=== PATIENT | female | born 1940 | race Caucasian/White ===

== ENCOUNTER 2019-01-05 15:55 | Observation (INO) | payer MEDICARE, OTHER ==
[2019-01-05 16:45] LABS: ABS Basophils 0 10^3/ul (0-0.2); ABS Eosinophils 0.3 10^3/ul (0-0.6); ABS Lymphocytes 1.2 10^3/ul (1.0-4.8); ABS Monocytes 0.5 10^3/ul (0-0.8); ABS Neutrophils 3.6 10^3/ul (1.5-7.7); ABS Nucleated RBC 0 10^3/ul; Eosinophil % 5.1 %; Hematocrit 44 % (35-47); Hemoglobin 14.8 g/dl (12.0-16.0); Lymphocyte % 22.3 %; Mean Corpuscular HGB Conc 33 g/dl (31-36); Mean Corpuscular Hemoglobin 33 pg (27-31); Mean Corpuscular Volume 98 fL (80-97); Mean Platelet Volume 7.3 fL (7.4-10.4); Nucleated Red Blood Cells % 0.1; Platelet Count 214 10^3/ul (150-450); Red Blood Count 4.53 10^6/ul (4.00-5.40); Red Cell Distribution Width 14 % (10.5-15); White Blood Count 5.6 10^3/ul (3.5-10.8)
--- NOTE | 2019-01-05 16:45 | ED ---
Hypertension - HPI Summary HPI Summary: 78-year-old female presents with presyncope today. She says she was doing her usually PT for her knee and went to move from seat to the floor and she fell dizzy and that she was going to pass out. She denies any chest pain or shortness breath. She states that the dizziness persisted and her blood pressure was taken and was found to be high. She states this never happened before. She admits to headache. States that she's been having sinus pressure. She states she did have some nasal discharge a couple days ago. has history of sinusitis. She states that it is a sensation that she is passed out with the dizziness. No change with movement. She denies any history of high blood pressure or cardiac issues. She has not had stress test in 18 years. - History of Current Complaint Chief Complaint: EDHypertension Stated Complaint: POSS HIGH BLOOD PRESSURE Time Seen by Provider: 01/05/19 16:27 - Allergies/Home Medications Allergies/Adverse Reactions: Allergies Allergy/AdvReac Type Severity Reaction Status Date / Time codeine Allergy Itching Verified 01/05/19 16:09 hydrocodone Allergy Itching Verified 01/05/19 16:09 oxycodone Allergy Itching Verified 01/05/19 16:09 Penicillins Allergy Itching Verified 01/05/19 16:09 Home Medications: Home Medications PARoxetine HCL TAB* [Paxil TAB*] 10 mg PO DAILY 01/05/19 [History Confirmed 10/13] Simvastatin (NF) [Zocor (NF)] 40 mg PO BEDTIME 01/05/19 [History Confirmed 01/05] traMADol TAB* [Ultram*] 50 mg PO TID PRN 01/05/19 [History Confirmed 01/05/19] PMH/Surg Hx/FS Hx/Imm Hx Endocrine/Hematology History: Denies: Hx Diabetes, Hx Systemic Lupus Erythematosus, Other Endocrine/ Hematological Disorders Cardiovascular History: Reports: Hx Hypercholesterolemia, Hx Hypertension, Other Cardiovascular Problems/Disorders - HIGH CHOLESTEROL Denies: Hx Congestive Heart Failure, Hx Pacemaker/ICD GI History: Reports: Hx Diverticulosis, Hx Irritable Bowel Comment Only: Other GI Disorders - liver abcess History: Denies: Hx Dialysis, Hx Renal Disease Musculoskeletal History: Reports: Hx Back Problems Denies: Hx Rheumatoid Arthritis, Hx Osteoporosis Sensory History: Reports: Hx Contacts or Glasses Denies: Hx Hearing Aid Opthamlomology History: Reports: Hx Contacts or Glasses Psychiatric History: Reports: Hx Anxiety, Hx Depression Denies: Hx Panic Disorder - Cancer History Hx Chemotherapy: No Hx Radiation Therapy: No - Surgical History Surgery Procedure, Year, and Place: RT FEMUR SURGERY 2008, DENTAL SURGERIES , D& C - Immunization History Date of Tetanus Vaccine: unknown Infectious Disease History: No Infectious Disease History: Denies: Hx Clostridium Difficile, Hx of Known/Suspected MRSA, Traveled Outside the [place] in Last 30 Days - Family History Known Family History: Positive: Cardiac Disease, Hypertension - Social History Alcohol Use: Rare Substance Use Type: Reports: None Hx Tobacco Use: No Smoking Status (MU): Never Smoked Tobacco Have You Smoked in the Last Year: No Review of Systems Negative: Fever Positive: Other - sinus pressure Negative: Chest Pain Negative: Shortness Of Breath Neurological: Other - dizziness, high blood pressure All Other Systems Reviewed And Are Negative: Yes Physical Exam Triage Information Reviewed: Yes Vital Signs On Initial Exam: Initial Vitals Temp Pulse Resp BP Pulse Ox 97.2 F 62 16 210/97 99 01/05/19 15:59 01/05/19 15:59 01/05/19 15:59 01/05/19 15:59 01/05/19 15:59 Vital Signs Reviewed: Yes Appearance: Positive: Well-Appearing Skin: Positive: Warm, Dry Head/Face: Positive: Normal Head/Face Inspection Eyes: Positive: Normal, EOMI, ANN, Conjunctiva Clear ENT: Positive: Normal ENT inspection, Pharynx normal, TMs normal, Sinus tenderness Respiratory/Lung Sounds: Positive: Clear to Auscultation, Breath Sounds Present Cardiovascular: Positive: Normal, RRR Abdomen Description: Positive: Nontender, Soft Bowel Sounds: Positive: Present Musculoskeletal: Positive: Normal Neurological: Positive: Normal Psychiatric: Positive: Normal Diagnostics - Vital Signs Vital Signs Temp Pulse Resp BP Pulse Ox 01/05/19 15:59 97.2 F 62 16 210/97 99 - Laboratory Result Diagrams: 01/05/19 16:37 01/05/19 16:37 Lab Statement: Any lab studies that have been ordered have been reviewed, and results considered in the medical decision making process. - Radiology brain Radiology Interpretation Completed By: Radiologist Summary of Radiographic Findings: IMPRESSION: 1. Chronic findings described above without CT apparent acute intracranial abnormality. 2. Chronic sphenoid sinus disease that has progressed since the May 15, 2015 CT of the. brain. - EKG No standard instances Cardiac Rate: Bradycardia EKG Rhythm: Sinus Bradycardia Summary of EKG Findings: sinus bradycardia Re-Evaluation - Re-Evaluation First Eval Re-Evaluation Time: 18:12 Change: Improved Comment: denies any dizziness, states just sinus pressure Second Eval Re-Evaluation Time: 18:23 Change: Worse Comment: patient became extremely dizzy on toliet Hypertension Course/Dx - Course Course Of Treatment: 78-year-old female presents with dizziness today. States started during PT today she tried to stand up and became dizzy and that it persisted for about 30 minutes. States it is feeling that she is going to pass out. She denies chest pressures or shortness of breath. She denies any history of high blood pressure. She denies any dizziness currently. On exam lungs clear to auscultation. Normal neuro exam. CT shows sinusitis. ekg shows sinus bradycardia. troponin zero. wbc normal. Patient's vitals were not orthostatic. patient had no dizziness will in ED until attempted to have patient ambulate and when tried to get up from the toilet patient almost passed out. discussed with dr orr who suggests discussing with the hospital. Discussed with hospitalist who agreed to admit. - Diagnoses Differential Diagnosis/HQI PQRI: Hypertensive Crisis, Hypertensive Urgency, Other - sinsuitis Provider Diagnoses: Dizziness, High blood pressure Discharge - Sign-Out/Discharge Documenting (check all that apply): Patient Departure - Discharge Plan Condition: Stable Disposition: ADMITTED TO [facility] - Billing Disposition and Condition Condition: STABLE Disposition: Admitted to [facility]
[2019-01-05 17:03] LABS: ALT 5 U/L (7-52); AST 20 U/L (13-39); Albumin 4.2 g/dL (3.2-5.2); Albumin/Globulin Ratio 1.7 (1-3); Alkaline Phosphatase 34 U/L (34-104); Anion Gap 7 mmol/L (2-11); BUN/Creatinine Ratio 16.9 (8-20); Blood Urea Nitrogen 14 mg/dL (6-24); CO2 Carbon Dioxide 27 mmol/L (22-32); Calcium 9.4 mg/dL (8.6-10.3); Chloride 105 mmol/L (101-111); EGFR African American 80.2 (>60); EGFR Non-African American 66.3 (>60); Globulin 2.5 g/dL (2-4); Glucose 103 mg/dL (70-100); Sodium 139 mmol/L (135-145); Total Protein 6.7 g/dL (6.4-8.9)
[2019-01-05] MEDS ORDERED: cloNIDine TAB* 0.1 MG PO ONE (17:18)
[2019-01-05 17:27] LABS: TSH (Thyroid Stimulating Horm) 2.92 mcIU/mL (0.34-5.60)
[2019-01-05 17:28] LABS: Urine Appearance Clear; Urine Bilirubin Negative (Negative); Urine Blood Negative (Negative); Urine Color Straw; Urine Glucose Negative (Negative); Urine Ketones Negative (Negative); Urine Nitrite Negative (Negative); Urine Protein Negative (Negative); Urine Specific Gravity 1.003 (1.010-1.030); Urine Urobilinogen Negative (Negative)
[2019-01-05 18:03] LABS: C Reactive Protein < 1.00 mg/L (<8.01)
[2019-01-05] MEDS: NS 0.9% 1000 ML** 1,000 ML IV SCH (22:26)
[2019-01-05] MEDS: Atorvastatin* 20 MG TAB PO SCH (22:26)
[2019-01-05] MEDS: traMADol TAB* 50 MG PO PRN (22:27)
[2019-01-05] MEDS ORDERED: Levofloxacin TAB* 500 MG PO SCH (22:30)
--- NOTE | 2019-01-05 22:40 | HP ---
CC: Dia Baumann NP HISTORY AND PHYSICAL: DATE OF ADMISSION: 01/05/19 PRIMARY CARE PROVIDER: iDa Baumann NP. CHIEF COMPLAINT: Lightheadedness. HISTORY OF PRESENT ILLNESS: This is a 78-year-old female with past medical history of chronic osteoarthritis, anxiety/depression, who was at physical therapy when she developed lightheadedness. Patient states that she was working with the Physical Therapy and when she tried to stand up she felt lightheaded, as if she was going to pass out. They took her blood pressure and patient was subsequently sent to the hospital for further evaluation and care. Patient reports that she has chronic sinus congestion and is having some headache behind the eye, which she attributes to her chronic sinus pain. She does not have any fevers, no chills, no chest pain, no shortness of breath. She does have decreased oral intake as well as decreased oral hydration. Patient reports that at some point several years ago, patient was in the hospital and they told her she was dehydrated, so she was given IV fluids and then she became fluid overloaded and had required IV diuresis and since then she has been cautious about drinking a lot of fluids. In the emergency room, patient was seen and evaluated, orthostatic vitals were done, which were negative. Patient also had labs and EKG done. They attempted to walk the patient to the bathroom and again the patient became very lightheaded, subsequently the hospitalist service was called for admission. PAST MEDICAL/SURGICAL HISTORY: Includes: 1. Hypertension. 2. Dyslipidemia. 3. Right hip fracture, status post ORIF. 4. History of ischemic colitis in 2014. 5. History of liver abscess, which required long-term antibiotics in 2014, subsequently patient also developed a DVT after having a PICC line placed in the same area. HOME MEDICATIONS: Includes: 1. Paroxetine 10 mg daily. 2. Multivitamins 1 tab daily. 3. Aspirin 81 mg daily. 4. Tramadol 50 mg t.i.d. as needed. 5. Simvastatin 40 mg. ALLERGIES: Include CODEINE, HYDROCODONE, OXYCODONE, PENICILLIN. FAMILY HISTORY: Father was an alcoholic. Mother lived until she was 86 and had back issues. SOCIAL HISTORY: Patient lives with her at home, her is the healthcare proxy, Mr. Allen. Patient does not smoke, rarely uses alcohol. REVIEW OF SYSTEMS: Patient does not have any fevers, no chills, she has decreased oral intake, she has chronic sinus congestion with some nasal drip. She does not have any changes in her vision or hearing, no sore throat, no chest pain, no palpitations, no shortness of breath, no cough, no sputum production, no abdominal pain, no nausea, no vomiting, no changes in her mentation status. Otherwise, the review of systems was done and is negative. PHYSICAL EXAMINATION GENERAL: This is an elderly female, well developed, well nourished, lying in an ER stretcher, in no acute distress. VITAL SIGNS: Blood pressure of 169/79, heart rate of 64, respiratory rate of 20 , saturation of 96% on room air, temperature of 97.2 Fahrenheit. HEENT: Pupils are equal, round, and reactive to light. Atraumatic, normocephalic. There is no oropharyngeal erythema. Oral mucosa is dry. No nystagmus. Poor skin turgor. There is sinus tenderness at the maxillary region. LUNGS: There is no tachypnea, no use of accessory muscles. Lungs are clear to auscultation without any wheezing, rales, or rhonchi. HEART: There is no chest wall tenderness, regular rate and rhythm, no murmurs. ABDOMEN: Bowel sounds are normoactive in all 4 quadrants; abdomen is soft, nontender, nondistended. NEUROLOGICAL: Alert and oriented x3. There is no nystagmus. There is no facial droop, symmetric smile. She is able to move all 4 extremities, 5/5, without any focal deficits, and there is no nystagmus upon standing up either. GAIT: Stable. DIAGNOSTIC STUDIES/LABORATORY DATA: White blood cell count of 5.6, hemoglobin of 14.8, hematocrit of 44, platelets of 214, glucose of 103, BUN of 14, creatinine of 0.83, TSH of 2.92. Urinalysis shows specific gravity of 1.003. EKG shows sinus bradycardia, with no acute ST-T changes. CT of the brain shows chronic findings as above. There is opacification of the right sphenoid sinus and moderate mucosal thickening with fluids levels in the left sphenoid sinus. IMPRESSION AND PLAN: 1. Lightheadedness: Patient appears to be dehydrated. Orthostatic vitals done in the ER were negative. We will start the patient on IV fluids. This could be a presyncopal episode. I will get an echocardiogram for completeness. 2. Sinus congestion, possible sinus infection: Start patient on levofloxacin. 3. History of hyperlipidemia: Continue simvastatin. 4. History of osteoarthritis with chronic pain syndrome: Continue tramadol as needed. 5. Continue daily aspirin. 6. History of anxiety/depression: Continue paroxetine. 7. For DVT prophylaxis, we will start the patient on sequential compression device and ambulate ad shine, we will also get Physical Therapy evaluation. [id number]/[facility] #: [id number] [facility]PITALGena
[2019-01-06] MEDS: NS 0.9% 1000 ML** 1,000 ML IV SCH (07:37)
[2019-01-06] MEDS: Aspirin EC TAB* 81 MG TAB.EC PO SCH (10:07)
[2019-01-06] MEDS: traMADol TAB* 50 MG PO PRN ×2 (10:07→20:42)
[2019-01-06] MEDS: PARoxetine HCL TAB* 10 MG PO SCH (10:09)
--- NOTE | 2019-01-06 12:36 | ECHO ---
Patient: DIANNE JACBO [facility] Rec#: [id number] : 1940 Date: 01/06/2019 Age: 78y Height: 150 cm / 59.1 in Weight: 59.4 kg / 130.9 lbs Sex: F BSA: 1.5 Room#: 433 Admit Date#: 01/05/2019 Type: Inpatient Referring: Pinky Farrell Reading: Omari Kelly MD Lcac Operator: Christine Taylor RN RDCS CC: Dia Baumann Transthoracic Echocardiogram Indication: Syncope BP: 133/53 HR: 61 Rhythm: NSR with PACs Findings History: HTN, HLD, ischemic colitis Technical Comments: The study quality is fair. The study is technically limited due to poor parasternal windows. Left Ventricle: The left ventricular chamber size is decreased. Septal wall hypertrophy is observed. There is increased basal septal hypertrophy noted without evidence of an increased gradient across the left ventricular outflow tract. Global left ventricular wall motion and contractility are within normal limits. There is normal left ventricular systolic function. The estimated ejection fraction is 60-65%. There is no consistent Doppler evidence of clinically significant diastolic dysfunction. Left Atrium: The left atrial chamber size is normal. Right Ventricle: The right ventricular chamber size and systolic function are within normal limits. Right Atrium: The right atrial cavity size is normal. There is evidence of an atrial septal aneurysm. Aortic Valve: The aortic valve is trileaflet. The aortic valve leaflets are mildly thickened. There is a trace of aortic regurgitation. There is no evidence of aortic stenosis. Mitral Valve: The mitral valve leaflets are mildly thickened. There is mild mitral regurgitation. There is no evidence of mitral stenosis. Tricuspid Valve: The tricuspid valve leaflets are normal. There is trace tricuspid regurgitation. No pulmonary hypertension is noted. There is no tricuspid stenosis. Pulmonic Valve: The pulmonic valve structure is not well visualized. There is no evidence of pulmonic regurgitation. There is no pulmonic stenosis. Pericardium: There is no significant pericardial effusion. Aorta: There is no dilatation of the ascending aorta. There is no dilatation of the aortic arch. There is no dilation of the aortic root. Pulmonary Artery: The main pulmonary artery is not well visualized. Venous: The inferior vena cava appears normal in size. There is a greater than 50% respiratory change in the inferior vena cava dimension. Summary: There are no significant changes when compared to the previous study done on 04/13/15 Conclusions There is increased basal septal hypertrophy noted without evidence of an increased gradient across the left ventricular outflow tract. Global left ventricular wall motion and contractility are within normal limits. The estimated ejection fraction is 60-65%. There is a trace of aortic regurgitation. There is mild mitral regurgitation. There is trace tricuspid regurgitation. No pulmonary hypertension is noted. There is no significant pericardial effusion. Measurements Name Value Normal Range RVDdMajor (2D) 2.5 cm (2.2 - 4.4) RAd ISD 4CH 4.2 cm (3.4 - 4.9) RA (A4C)W 3.2 cm (2.9 - 4.6) IVSd (2D) 1.1 cm (0.6 - 1) LVPWd (2D) 0.9 cm (0.6 - 1) LVIDd (2D) 2.8 cm (3.6 - 5.4) LVIDs (2D) 2.1 cm - LV FS (2D) 25 % (25 - 45) Aortic Annulus 1.7 cm (1.4 - 2.6) Ao root diameter (2D) 2.8 cm (2.1 - 3.5) Ascending Ao 2.7 cm (2.1 - 3.4) Aortic arch 2.3 cm (1.8 - 3.4) LA dimension (AP) 2D 3.4 cm (2.3 - 3.8) LAd ISD 4CH 5 cm (2.9 - 5.3) LA ISD 4CH W 4.2 cm (2.5 - 4.5) Name Value Normal Range LA ESV BP (A/L) index 30.8 ml/m2 - Name Value Normal Range MV E-wave Vmax 0.66 m/sec - MV deceleration time 250 msec - MV A-wave Vmax 1.1 m/sec - MV E:A ratio 0.6 ratio - LV septal e' Vmax 0.07 m/sec - LV lateral e' Vmax 0.08 m/sec - LV E:e' septal ratio 9.4 ratio - LV E:e' lateral ratio 8.3 ratio - Name Value Normal Range AV Vmax 1.5 m/sec - AV VTI 33.1 cm - AV peak gradient 9 mmHg - AV mean gradient 5 mmHg - LVOT Vmax 1 m/sec - LVOT VTI 23 cm - LVOT peak gradient 4 mmHg - LVOT mean gradient 2 mmHg - NISHI Vmax 0.46 m/sec - Name Value Normal Range TR Vmax 2.2 m/sec - TR peak gradient 19 mmHg - RAP 3 mmHg - RVSP 22 mmHg - IVC diameter 1.8 cm - Name Value Normal Range PV Vmax 0.66 m/sec -
[2019-01-06] MEDS ORDERED: Meclizine TAB* 12.5 MG PO PRN (12:43)
[2019-01-06] MEDS: Amoxicillin/Clavulanate TAB* 875 MG PO SCH ×2 (13:11→20:42)
--- NOTE | 2019-01-06 18:37 | PN ---
Subjective Date of Service: 01/06/19 Interval History: Patient seen and examined. States she still feels dizzy at times. Was able to ambulate but dizziness started again when she turned her head quickly. Also states she has pain behind right eye, teeth and upper cheek bone also on the right. Denies fever or chills. Objective Active Medications: Amoxicillin/Clavulanate Potassium (Augmentin Tab*) 875 mg PO BID [facility] Last Admin: 01/06/19 13:11 Dose: 875 mg Aspirin (Aspirin Ec Tab*) 81 mg PO DAILY [facility] Last Admin: 01/06/19 10:07 Dose: 81 mg Atorvastatin Calcium (Lipitor*) 20 mg PO BEDTIME [facility] Last Admin: 01/05/19 22:26 Dose: 20 mg Meclizine HCl (Antivert Tab*) 12.5 mg PO Q6H PRN PRN Reason: DIZZINESS Last Admin: 01/06/19 13:11 Dose: 12.5 mg Multivitamins/Minerals (Theragran/Minerals Tab*) 1 tab PO EVERY OTHER DAY [facility] Paroxetine HCl (Paxil Tab*) 10 mg PO DAILY [facility] Last Admin: 01/06/19 10:09 Dose: 10 mg Tramadol HCl (Ultram*) 50 mg PO TID PRN PRN Reason: PAIN Last Admin: 01/06/19 10:07 Dose: 50 mg Vital Signs - 8 hr 01/06/19 01/06/19 01/06/19 11:45 12:17 12:38 Temperature 98.0 F 97.5 F Pulse Rate 60 68 Respiratory 18 16 16 Rate Blood Pressure 147/75 157/64 (mmHg) O2 Sat by Pulse 94 96 Oximetry 01/06/19 15:08 Temperature 97.7 F Pulse Rate 65 Respiratory 16 Rate Blood Pressure 143/56 (mmHg) O2 Sat by Pulse 95 Oximetry Oxygen Devices in Use Now: None Appearance: alert, NAD Eyes: No Scleral Icterus, PERRLA Ears/Nose/Mouth/Throat: Mucous Membranes Moist, - - tender over frontal sinus and cheek to percussion Neck: NL Appearance and Movements; NL JVP, Trachea Midline Respiratory: Symmetrical Chest Expansion and Respiratory Effort, Clear to Auscultation Cardiovascular: NL Sounds; No Murmurs; No JVD, RRR Abdominal: NL Sounds; No Tenderness; No Distention, No Hepatosplenomegaly Lymphatic: No Cervical Adenopathy Extremities: No Edema, No Clubbing, Cyanosis Skin: No Rash or Ulcers Neurological: Alert and Oriented x 3, NL Sensation, NL Muscle Strength and Tone Nutrition: Taking PO's Result Diagrams: 01/05/19 16:37 01/05/19 16:37 Diagnostic Imaging: Patient Name: DIANNE JACOB Medical Record#: [id number] Ordering Physician: Angela SPRINGER Acct.#: [id number] : 1940 Age: 78 Sex: F Location: EMERGENCY DEPARTMENT Exam Date: 01/05/191641 ADM Status: REG ER Order Information: CT BRAIN WO Accession Number: [id number] CPT: 24572 INDICATION: Dizziness COMPARISON: CT of the brain May 15, 2015 TECHNIQUE: Contiguous axial sections of the brain were obtained from the skull base to the vertex without contrast. FINDINGS: The ventricles, cisterns and sulci mild involutional changes. There is a mild degree of periventricular and subcortical white matter hypoattenuation most consistent with chronic microvascular disease. Otherwise the parker-white matter differentiation is adequately maintained and there is no sulcal effacement. No significant focal abnormality or mass effect is present. There is no evidence for intracranial hemorrhage. No significant focal osseous abnormality is present. There is opacification of the right sphenoid sinus and moderate mucosal thickening with fluid levels in the left sphenoid sinus. The mastoid air cells are well aerated bilaterally. IMPRESSION: 1. Chronic findings described above without CT apparent acute intracranial abnormality. 2. Chronic sphenoid sinus disease that has progressed since the May 15, 2015 CT of the brain. CARDIAC ECHO Conclusions There is increased basal septal hypertrophy noted without evidence of an increased gradient across the left ventricular outflow tract. Global left ventricular wall motion and contractility are within normal limits. The estimated ejection fraction is 60-65%. This report is only to be considered final once signed by the Provider(s) as displayed in the "<Electronically Signed by >" field (s). Absence of a signature indicates the report is in a draft status and still needs to be finalized. In the event this document was created by someone other than the signing Provider, the individual initiating the document will be listed in the "Entered by:" or "Dictated by:" simons. There is a trace of aortic regurgitation. There is mild mitral regurgitation. There is trace tricuspid regurgitation. No pulmonary hypertension is noted. There is no significant pericardial effusion. Assess/Plan/Problems-Billing Assessment: This is a 78 year old female patient that presents to ED with complaints of dizziness, admitted for r/o TIA. - Patient Problems (1) Lightheadedness Code(s): R42 - DIZZINESS AND GIDDINESS SNOMED Code(s): 276659660 Comment: - CT head above, more likely 2/2 acute on chronic sinusitis - Gets dizzy with position change or sudden movement - Does not appear consistent with TIA - Trial antivert Q6h PRN (2) Dehydration Code(s): E86.0 - DEHYDRATION SNOMED Code(s): 04490791 Comment: - In presence of sinus infection - Responding well to IVF (3) Sinusitis, acute Code(s): J01.90 - ACUTE SINUSITIS, UNSPECIFIED SNOMED Code(s): 75346064 Comment: - Had one dose levaquin but given age, would rather change atbx - Patient states her "allergy" to PCN was what she was told as a child, and does not report anaphylaxis rash or wheezing - discussed with pharmacy, will trial augmentin (4) Chronic back pain Code(s): M54.9 - DORSALGIA, UNSPECIFIED; G89.29 - OTHER CHRONIC PAIN SNOMED Code(s): 508266356 Comment: - Stable on tramadol (5) HLD (hyperlipidemia) Code(s): E78.5 - HYPERLIPIDEMIA, UNSPECIFIED SNOMED Code(s): 59583492 Comment: - Continue statin (6) Hypertension Code(s): I10 - ESSENTIAL (PRIMARY) HYPERTENSION SNOMED Code(s): 53036681 Comment: - Hypertensive in ER, had clonidine - Will trial low dose amlodipine and monitor (7) DVT prophylaxis Code(s): IZU6237 - SNOMED Code(s): 103003814 Comment: - Ambulate, SCDs (hx of GI bleed in the past) (8) Full code status Code(s): Z78.9 - OTHER SPECIFIED HEALTH STATUS SNOMED Code(s): 608538144 Status and Disposition: Inpatient, pending PT eval. Dispo TBD.
[2019-01-06] MEDS: Atorvastatin* 20 MG TAB PO SCH (20:42)
[2019-01-07] MEDS: traMADol TAB* 50 MG PO PRN ×2 (04:23→13:10)
[2019-01-07] MEDS: Aspirin EC TAB* 81 MG TAB.EC PO SCH (07:57)
[2019-01-07] MEDS: PARoxetine HCL TAB* 10 MG PO SCH (07:57)
[2019-01-07] MEDS ORDERED: Multivitamins/Minerals TAB PO SCH (09:00)
[2019-01-07] MEDS ORDERED: amLODIPine TAB* 5 MG PO SCH (09:00)
[2019-01-07 11:48] VITALS: BP 122/53
[2019-01-07] MEDS: Amoxicillin/Clavulanate TAB* 875 MG PO SCH (13:09)
--- NOTE | 2019-01-07 17:22 | DS ---
CC: [facility]; Dr. Clark, Orthopedics; Dr. Mary Kong, Orthopedics * DISCHARGE SUMMARY: DATE OF ADMISSION: 01/05/19 DATE OF DISCHARGE: 01/07/19 PRIMARY CARE PROVIDER: [facility]. MY ATTENDING FOR TODAY: Dr. Thomson.* (DICTATED BY HOMAR GONZALES NP) HOSPITAL COURSE: Please refer to admission H and P dated 01/05/19, but in short , this is a 78-year-old female patient with medical history including hypertension, hyperlipidemia, history of liver abscess, ischemic colitis, chronic osteoarthritis, and back pain that came to the emergency department for evaluation of some lightheadedness and dizziness. The patient states she was at physical therapy when she began having the spins. She was sent to the emergency department for evaluation. CT of the head ruled out CVA. It was thought that the patient might be having a TIA; however, it was noted on CAT scan that she had an acute on chronic sinusitis. The patient does state she had some purulent nasal congestion, sinus pain on the right side around the right orbit, across the frontal sinus, and into the teeth. The patient denied any fever or chills; however, she did have dizziness and sensation of spinning with quick movement of her head. She also was dehydrated and had some decreased oral intake. The patient was admitted for IV fluids and continued management. She received Augmentin 875 mg. This was confirmed with pharmacy. The patient does not have a true penicillin allergy and has tolerated the Augmentin well without any rashes or hives. The patient was also started on meclizine 12.5 mg q.6 hours as needed with good effect. She was continued on her aspirin, tramadol, multivitamins, and paroxetine, also her statin. The patient was able to ambulate with minimal assistance. As stated, her dizziness began to resolve. She responded well to IV fluids and was readied for discharge today. The patient was hypertensive at admission. She received clonidine in the ED and then amlodipine for which she had good effect and control of her blood pressure. DISCHARGE DIAGNOSES: 1. Acute on chronic sinusitis. 2. Lightheadedness secondary to acute on chronic sinusitis. 3. History of hyperlipidemia, stable. 4. History of osteoarthritis, on tramadol, stable. 5. History of hypertension. 6. History of anxiety and depression, currently stable. DISCHARGE MEDICATIONS: Include her home medications of: 1. Paroxetine 10 mg p.o. daily. 2. Multivitamin 1 tablet daily. 3. Aspirin 81 mg daily. 4. Tramadol 50 mg 3 times a day as needed. 5. Simvastatin 40 mg in the evening. New medications include: 1. Amlodipine 5 mg p.o. daily. 2. Meclizine 12.5 mg q.6 hours as needed for dizziness. 3. Augmentin tablet 875 one tablet p.o. b.i.d. x6 more days. REVIEW OF SYSTEMS: On day of discharge, the patient's only complaint is some right shoulder pain with some point tenderness and restricted range of motion of the right shoulder. She denies any fever, fatigue, or chills. Her dizziness has for the most part resolved. She has no headache, no blurry vision , no nausea, no vomiting, no chest pain, no shortness of breath, and no further constitutional complaints. PHYSICAL EXAMINATION: Reveals a well-appearing, elderly woman, in no acute distress. Vital signs are blood pressure 122/53, heart rate 62, respiratory rate 18, O2 saturation 94% on room air with temperature of 98.1. HEENT: The patient is atraumatic, normocephalic. PERRLA with nonicteric sclerae. Extraocular movements are intact. There is no nystagmus. Oral mucosa is moist. Tongue is midline. Neck is supple, nontender. No JVD noted and no carotid bruits auscultated. Cardiovascular: S1, S2 present. Rate and rhythm are regular with no murmurs, gallops, or rubs. Lungs are clear bilaterally to auscultation with no adventitious breath sounds. Abdomen is soft, nontender, nondistended. Positive bowel sounds in all 4 quadrants. is deferred. Musculoskeletal: There is no clubbing and no cyanosis. She has no pedal edema. She has +2 distal pulses palpable, steady gait, full range of motion of the lower extremities. She has restricted range of motion of the right upper extremity secondary to an old proximal humerus fracture. She also has some point tenderness in and around the AC joint in the right shoulder. There is no warmth, erythema, or other tenderness noted. Neurologic: She is grossly intact with no focal deficits. Psychiatric: Cooperative and appropriate. DIAGNOSTIC STUDIES/LAB DATA: WBCs 5.6, RBCs 4.53, hemoglobin 14.8, hematocrit 44 , platelets 214. Sodium 139, potassium 4.0, chloride 105, CO2 of 27, BUN 14, creatinine 0.83, GFR 66.3, glucose 103, lactic acid 0.6, calcium 9.4, magnesium 2.0. Bilirubin 0.70, AST 20, ALT 5, alk phos 34. Troponin 0.00. CRP is less than 1. Total protein 6.7, albumin 4.2, globulin 2.5. TSH 2.92. Urinalysis is negative for any acute infective process. Imaging: CAT scan of the brain dated 01/05/19 shows chronic findings of opacification of the right sphenoid sinus and moderate mucosal thickening with air- fluid levels of the left sphenoid sinus, mastoid air cells are well aerated bilaterally. No further acute intracranial hemorrhage or pathology noted. DISPOSITION: The patient will be discharged to home in the care of her . DIET: She should have a heart-healthy diet as tolerated. FOLLOWUPS: The patient was instructed to follow up with [facility]. The patient was seeing Dia Baumann NP. She is no longer with the practice. We recommend that she follow up with one of the other providers in the practice. We also gave her a referral for Dr. Kong of Orthopedics. The patient already sees Dr. Clark for her arthritis and is currently engaging in physical therapy. However, given the right shoulder pain, we recommend that she have outpatient followup with Dr. Kong to evaluate for any soft tissue damage; given her history of humerus fracture in the past, it may be warranted for her to have additional imaging in the outpatient setting. The joint does not appear septic and labs also support no further infectious process. TIME SPENT: 35 minutes interfacing with the patient and her and other providers on her plan of care for discharge. HOMAR GONZALES NP [id number]/[facility] #: [id number] [place]
== END 2019-01-07 14:12 | disposition home or self-care (01) ==
LOC: ED 15:55 → MEDTELE 20:14
PROVIDERS: ADMIT Internal Medicine; ATTEND Internal Medicine
DX: J01.90 Acute sinusitis, unspecified (principal); R42 Dizziness and giddiness; E78.5 Hyperlipidemia, unspecified; I10 Essential (primary) hypertension; M19.90 Unspecified osteoarthritis, unspecified site; F41.9 Anxiety disorder, unspecified; Z79.82 Long term (current) use of aspirin; Z96.651 Presence of right artificial knee joint; Z88.0 Allergy status to penicillin
CPT/HCPCS: 36415; 70450; 80053; 81003; 83605; 83735; 84443; 84484; 85025; 86140; 93005; 93306; 96360; 99284; A9270-GY; G0378; G8978-GP-CH; G8979-GP-CH; G8980-GP-CH

== ENCOUNTER 2022-06-26 23:32 | Inpatient (IN) ==
[2022-06-27 07:46] LABS: ABS Eosinophils 0.1 10^3/ul (0-0.6); ABS Lymphocytes 1.5 10^3/ul (1.0-4.8); ABS Monocytes 0.7 10^3/ul (0-0.8); ABS Neutrophils 6.2 10^3/ul (1.5-7.7); Eosinophil % 1.2 %; Hematocrit 39 % (35-47); Hemoglobin 13.9 g/dL (12.0-16.0); Lymphocyte % 17.8 %; Mean Corpuscular HGB Conc 36 g/dL (31-36); Mean Corpuscular Hemoglobin 35 pg (27-31); Mean Corpuscular Volume 98 fL (80-97); Platelet Count 208 10^3/uL (150-450); Red Blood Count 3.98 10^6 /uL (3.70-4.87); Red Cell Distribution Width 14 % (10-15); White Blood Count 8.5 10^3/uL (3.5-10.8)
[2022-06-27 08:34] LABS: Albumin 4.1 g/dL (3.2-5.2); Albumin/Globulin Ratio 1.6 (1-3); Calcium 9.6 mg/dL (8.6-10.3); Globulin 2.6 g/dL (2-4); Potassium 3.4 mmol/L (3.5-5.0); Total Bilirubin 0.9 mg/dL (0.2-1.0); Total Protein 6.7 g/dL (6.4-8.9); eGFR CKD-EPI 42.6 (>60)
[2022-06-27 09:15] LABS: Magnesium 1.6 mg/dL (1.9-2.7)
[2022-06-27] MEDS ORDERED: Potassium Chlor 20 meq TAB.ER PO ONE (09:27)
[2022-06-27] MEDS ORDERED: Magnesium Hydroxide LIQ 30 ML UDC PO PRN (10:01)
[2022-06-27] MEDS: Enoxaparin 40 MG/0.4 ML SYR SUBCUT SCH (10:51)
[2022-06-27] MEDS ORDERED: Lactated Ringers 1000 ml BAG 1,000 ML IV ONE (11:26)
[2022-06-27] MEDS: Morphine 2 MG/ML SYRINGE IV SCH ×3 (12:26→23:07)
[2022-06-27] MEDS ORDERED: Senna TAB 8.6 mg TAB PO PRN ×2 (13:24→21:00)
[2022-06-28] MEDS: Morphine 2 MG/ML SYRINGE IV SCH ×3 (05:37→15:27)
[2022-06-28 06:26] LABS: Calcium 8.7 mg/dL (8.6-10.3); Magnesium 1.7 mg/dL (1.9-2.7); Potassium 4.1 mmol/L (3.5-5.0); eGFR CKD-EPI 49.1 (>60)
[2022-06-28] MEDS ORDERED: Magnesium Sulfate 2 gm BAG 2 GM/50 ML BAG IVPB ONE (11:48)
[2022-06-28] MEDS: Enoxaparin 40 MG/0.4 ML SYR SUBCUT SCH (12:02)
[2022-06-28 19:05] LABS: Urine Appearance Clear; Urine Bilirubin Negative (Negative); Urine Blood Negative (Negative); Urine Color Yellow; Urine Glucose Negative (Negative); Urine Ketones Negative (Negative); Urine Nitrite Negative (Negative); Urine Protein Negative (Negative); Urine Urobilinogen 0.2 (Negative) (Negative); Urine pH 5.5 (5.0-9.0)
[2022-06-28 19:19] LABS: Urine Bacteria Absent (Absent); Urine Red Blood Cell Trace(0-2/hpf) (Absent); Urine White Blood Cell 3+(>20/hpf) (Absent)
[2022-06-29] MEDS: Morphine 2 MG/ML SYRINGE IV SCH ×3 (02:24→10:27)
[2022-06-29 09:29] LABS: Calcium 8.8 mg/dL (8.6-10.3); Potassium 4.4 mmol/L (3.5-5.0); eGFR CKD-EPI 48.1 (>60)
[2022-06-29] MEDS ORDERED: NS 0.9% 1000 ml BAG 1,000 ML IV SCH (11:00)
[2022-06-29] MEDS: Enoxaparin 40 MG/0.4 ML SYR SUBCUT SCH (11:23)
[2022-06-29 12:45] LABS: Magnesium 2.1 mg/dL (1.9-2.7)
[2022-06-30 06:22] LABS: Calcium 8.6 mg/dL (8.6-10.3); Potassium 4.6 mmol/L (3.5-5.0); eGFR CKD-EPI 57.6 (>60)
[2022-06-30 11:13] VITALS: BP 128/75
[2022-06-30] MEDS: Enoxaparin 40 MG/0.4 ML SYR SUBCUT SCH (11:34)
== END 2022-06-30 14:10 | disposition home or self-care (01) | DRG 536 ==
LOC: ED 23:32 → EDHOLD 23:32 → SUATTDRO 06-27 10:01 → SSU 06-27 14:10
PROVIDERS: ADMIT Internal Medicine; ATTEND Internal Medicine

== ENCOUNTER 2022-10-21 12:34 | Observation (INO) ==
[2022-10-21 17:02] LABS: ABS Eosinophils 0.2 10^3/ul (0-0.6); ABS Lymphocytes 1.3 10^3/ul (1.0-4.8); ABS Monocytes 0.4 10^3/ul (0-0.8); ABS Neutrophils 3.4 10^3/ul (1.5-7.7); Eosinophil % 4.2 %; Hematocrit 39 % (35-47); Hemoglobin 12.9 g/dL (12.0-16.0); Lymphocyte % 24.4 %; Mean Corpuscular HGB Conc 33 g/dL (31-36); Mean Corpuscular Hemoglobin 33 pg (27-31); Mean Corpuscular Volume 100 fL (80-97); Mean Platelet Volume 7.5 fL (7.4-10.4); Nucleated Red Blood Cells % 0.1; Platelet Count 206 10^3/uL (150-450); Red Blood Count 3.93 10^6 /uL (3.70-4.87); Red Cell Distribution Width 13 % (10-15); White Blood Count 5.4 10^3/uL (3.5-10.8)
[2022-10-21 17:11] LABS: INR 1.08 (0.89-1.11)
[2022-10-21 17:26] LABS: High Sens Troponin Baseline 8 pg/mL (<15)
[2022-10-21 17:59] LABS: ALT 6 U/L (7-52); AST 20 U/L (13-39); Albumin/Globulin Ratio 1.7 (1-3); Alkaline Phosphatase 34 U/L (35-149); Anion Gap 8 mmol/L (2-11); Blood Urea Nitrogen 9 mg/dL (6-24); CO2 Carbon Dioxide 28 mmol/L (22-32); Calcium 9.4 mg/dL (8.6-10.3); Chloride 106 mmol/L (101-111); Globulin 2.3 g/dL (2-4); Glucose 105 mg/dL (70-100); Potassium 3.6 mmol/L (3.5-5.0); Sodium 142 mmol/L (135-145); Total Protein 6.3 g/dL (6.4-8.9); eGFR CKD-EPI 59.8 (>60)
[2022-10-21 18:11] LABS: TSH Ultra Thyroid Stim Horm 2.46 mcIU/mL (0.34-5.60)
[2022-10-21 18:44] LABS: High Sensitivity Troponin 1 Hr 9 pg/mL (<15)
[2022-10-21 18:52] LABS: Urine Appearance Clear; Urine Bilirubin Negative (Negative); Urine Blood Negative (Negative); Urine Color Yellow; Urine Glucose Negative (Negative); Urine Ketones Negative (Negative); Urine Protein Negative (Negative); Urine Specific Gravity 1.029 (1.002-1.030); Urine pH 5.5 (5.0-9.0)
[2022-10-21 18:53] LABS: Urine Nitrite Negative (Negative); Urine Urobilinogen 0.2 (Negative) (Negative)
[2022-10-21 19:01] LABS: Urine Amorphous Crystals Present (Absent); Urine Bacteria Absent (Absent); Urine Red Blood Cell 2+(6-10/hpf) (Absent); Urine Squamous Epithelial Cell Present (Absent); Urine White Blood Cell Trace(0-5/hpf) (Absent)
[2022-10-21] MEDS: Enoxaparin 40 MG/0.4 ML SYR SUBCUT SCH (21:45)
[2022-10-21 22:31] LABS: C Reactive Protein < 1.00 mg/L (<8.01)
[2022-10-21 22:57] LABS: Folate > 20.00 ng/mL (5.90-24.80)
[2022-10-21 22:58] LABS: Vitamin B12 499 pg/mL (180-914)
[2022-10-22] MEDS ORDERED: Potassium Chlor 20 meq TAB.ER PO ONE (04:35)
[2022-10-22] MEDS: Enoxaparin 40 MG/0.4 ML SYR SUBCUT SCH (20:59)
[2022-10-23 11:34] VITALS: BP 157/81
== END 2022-10-23 13:45 | disposition home or self-care (01) ==
LOC: EDHOLD 12:34 → ED 12:34 → SUATTDRO 19:38 → MED 10-22 15:33
PROVIDERS: ADMIT Internal Medicine; ATTEND Internal Medicine